=== PATIENT | female | born 1995 | race African-American/Black ===

== ENCOUNTER 2018-12-23 16:19 | Emergency (ER) | payer SELFPAY ==
[~2018-12-23] VITALS: Ht 170.2 cm; Wt 53.0 kg
[2018-12-23] MEDS ORDERED: PENICILLN VK500 MG PO (18:23)
[2018-12-23] MEDS ORDERED: TRAMADOL HYDROC50 MG PO (18:23)
[2018-12-23 19:01] VITALS: BP 121/78
== END 2018-12-23 19:01 | disposition home or self-care (01) | DRG 159 ==
LOC: ED 16:19
DX: K04.7 Periapical abscess without sinus (principal); K08.89 Other specified disorders of teeth and supporting structures